=== PATIENT | male | born 1960 ===

== ENCOUNTER 2018-09-12 06:10 | Day surgery (SDC) | payer OTHER ==
[~2018-09-12 06:10] MED LIST: ASPIR 8181 MG; ATENOLOL50 MG; AVAPRO150 MG; FAMOTIDINE20 MG; FOLIC ACID0.4 MG; HYZAAR 50/12.51 TAB; SYNTHROID50 MCG
== END 2018-09-12 11:40 | disposition home or self-care (01) ==
LOC: AMB-ENDOS 06:10
DX: K92.1 Melena (principal); Z12.11 Encounter for screening for malignant neoplasm of colon

== ENCOUNTER 2018-10-09 06:00 | Day surgery (SDC) | payer OTHER ==
[2018-10-09] MEDS ORDERED: ZOFRAN ODT4 MG PO (10:36)
[2018-10-09] MEDS ORDERED: NEURONTIN300 MG PO (10:36)
[2018-10-09] MEDS ORDERED: ULTRACET PO (10:36)
[2018-10-09] MEDS ORDERED: MIRALAX17 GM PO (10:36)
== END 2018-10-09 15:25 | disposition home or self-care (01) ==
LOC: CIR.AMB 06:00
DX: K40.90 Unilateral inguinal hernia, without obstruction or gangrene, not specified as recurrent (principal)